=== PATIENT | female | born 1995 | race Caucasian/White ===

== ENCOUNTER 2016-05-20 16:50 | Emergency (ER) | payer MEDICAID ==
[~2016-05-20] VITALS: Ht 167.6 cm; Wt 181.0 kg
[~2016-05-20 16:50] MED LIST: CELE20TA PO; CETI5TAB2 PO; FLUT1SPR5 EACH NARE; LISD40 PO; MAGICADU2 SWISH-SWAL; TOPA100T11 PO; TRAZ50TA12 PO
[2016-05-20 17:02] VITALS: BP 183/116; PULSE 117; RESP 16; TEMP 98.6; O2SAT 99
[2016-05-20] MEDS ORDERED: LIDOCAINE HCL 1% 50 ML VIAL INFIL ONE (17:15)
[2016-05-20] MEDS ORDERED: AMOX875T PO (17:18)
[2016-05-20] MEDS ORDERED: CIPR0.3S LEFT EAR (17:18)
--- NOTE | 2016-05-20 17:19 | PD ---
HPI Chief Complaint: ENT Complaint Time Seen by Provider: 17:14 Travel History International Travel<30 days: No Contact w/Intl Traveler<30days: No Traveled to known affect area: No History of Present Illness HPI 20-year-old female presents to the emergency department for evaluation of left ear pain for 3 days. She states that she thought she had a cerumen impaction so she used peroxide. However, the pain is worsening. She does report associated hearing loss. Patient reports history of anxiety and insomnia. Patient does state she had a history of high blood pressure, states her physician took her blood pressure medications stating it was due to her anxiety. She denies any chance of . She denies any other complaints at this time. PFSH Past Medical History ADHD: Yes Asthma: Yes Bipolar Disorder: Yes Weight (Kg): 3 Anxiety: Yes Depression: Yes Cancer: No Cardiovascular Problems: Yes (HTN) Diabetes: No Diminished Hearing: No Endocrine: Yes GERD: Yes Headaches: Yes Hepatitis: No Hiatal Hernia: Yes Hypertension: Yes Immune Disorder: No Psychiatric: Yes (ODD) Respiratory: Yes (ASTHMA) Immunizations Current: Yes Migraines: No Sleep Apnea: Yes Thyroid Disease: No Tetanus Vaccination: > 5 Years Influenza Vaccination: No PNEUMOCCOCAL Vaccine (Year): 2 ?: Not LMP: 05-02-16 : 0 Para: 0 Miscarriage: 0 : 0 Past Surgical History Joint Replacement: No Pacemaker: No Other Surgery: Yes (SPINAL TAP) Social History Alcohol Use: No Tobacco Use: No Substance Use: No Allergies-Medications (Allergen,Severity, Reaction): Coded Allergies: Advair (Verified Allergy, Severe, PANIC ATTACK, 05/20/16) Grass (Verified Allergy, Severe, SNEEZING, 05/20/16) [place] Tree (Verified Allergy, Severe, SNEEZING, 05/20/16) Shrimp (Verified Allergy, Severe, UNKNOWN TOLD BY PRINCIPAL JAVA DEVELOPER, 05/20/16) Wheat (Verified Allergy, Severe, GI UPSET, 05/20/16) [place] (Verified Adverse Reaction, Mild, GI UPSET, 05/20/16) Reported Meds & Prescriptions Reported Meds & Active Scripts Active Amoxicillin 875 Mg Tab 875 Mg PO BID 10 Days Ciprodex Otic Drops (Ciprofloxacin-Dexamethasone Otic Drops) 0.3-0.1% Susp 4 Drop LEFT EAR BID Trazodone (Trazodone HCl) 50 Mg Tab 50 Mg PO 1 1/2 HS Topamax (Topiramate) 100 Mg Tab 100 Mg PO BID Celexa (Citalopram Hydrobromide) 20 Mg Tab 20 Mg PO 1 1/2DAILY Review of Systems Except as stated in HPI: all other systems reviewed are Neg Physical Exam Narrative GENERAL: Well-developed well-nourished obese female patient, ambulatory. Afebrile. SKIN: Warm and dry. HEAD: Normocephalic. Atraumatic. ENT: Mucosa pink and moist. No erythema or exudates. No uvular edema. No uvular , palatal, or tonsillar deviation. Airway patent. Nasal turbinates appear normal without nasal blood, purulent drainage or septal hematoma. Right tympanic membranes is clear without erythema or perforation. Left ear canal slightly swollen and tender. Cerumen noted and was attempted to be removed with a curet, but the patient could not tolerate. I am unable to visualize the tympanic membrane in the left ear. EYES: No scleral icterus. No injection or drainage. NECK: Supple, trachea midline. No JVD or lymphadenopathy. CARDIOVASCULAR: Regular rate and rhythm without murmurs, gallops, or rubs. RESPIRATORY: Breath sounds equal bilaterally. No accessory muscle use. Lungs sounds are clear to auscultation. GASTROINTESTINAL: Abdomen soft, non-tender, nondistended. MUSCULOSKELETAL: No cyanosis, or edema. Data Data Last Documented VS Vital Signs Date Time Temp Pulse Resp B/P Pulse Ox O2 Delivery O2 Flow Rate FiO2 05/20/16 17:24 98 193/107 05/20/16 17:02 98.6 16 99 Orders Lidocaine 1% Inj (50 Ml) (Xylocaine 1% I (05/20/16 17:15) [facility] Medical Decision Making Medical Screen Exam Complete: Yes Emergency Medical Condition: Yes Medical Record Reviewed: Yes Differential Diagnosis Otitis media versus otitis externa versus cerumen impaction Narrative Course 20-year-old female presents to the emergency department for evaluation of left ear pain for 3 days. Physical exam is consistent otitis externa. I am unable to visualize the tympanic membrane. Earwick is placed. Patient will be discharged prescription for Ciprodex and amoxicillin. She is encouraged to follow-up with her primary care physician regarding elevated blood pressure. Diagnosis Primary Impression: Otitis externa Qualified Code: H60.502 - Acute otitis externa of left ear, unspecified type Additional Impression: Hypertension Qualified Code: I10 - Essential hypertension Referrals: Primary Care Physician call for appointment Patient Instructions: General Instructions, Otitis Externa (ED) Additional Instructions: Use eardrops as directed. Remove earwick in 2 days has not fallen out. Take antibiotic as directed until gone. Follow-up with your primary care physician. Keep log of your blood pressure and follow up with your primary care physician. Return to the emergency department for any acute worsening of symptoms. Med/Other Pt SpecificInfo: Prescription(s) given Scripts Amoxicillin 875 Mg Xof357 Mg PO BID 10 Days Ref 0 Prov:Yoana Nagy 05/20/16 Ciprofloxacin-Dexamethasone Otic Drops (Ciprodex Otic Drops)0.3-0.1% Susp4 Drop LEFT EAR BID #1 BOTTLE Ref 0 Prov:Yoana Nagy 05/20/16 Disposition: 01 DISCHARGE HOME Condition: Stable Yoana Nagy May 20, 2016 17:19
[2016-05-20 17:24] VITALS: BP 193/107; PULSE 98
[2016-05-21] MEDS ORDERED: ZALE5CAP PO (08:27)
[2016-06-18] MEDS ORDERED: ZALE5CAP PO (16:29)
[2016-06-18] MEDS ORDERED: CETI10 PO (16:40)
[2016-06-18] MEDS ORDERED: FLUT1SPR5 EACH NARE (16:40)
[2016-06-18] MEDS ORDERED: KETOC2%T TOPICAL (16:40)
[2016-07-16] MEDS ORDERED: CELE20TA PO (15:35)
[2016-07-16] MEDS ORDERED: TOPA100T11 PO (15:35)
[2016-07-20] MEDS ORDERED: CITA40TA4 PO (14:55)
[2016-08-03] MEDS ORDERED: CETI10 PO (21:10)
[2016-08-03] MEDS ORDERED: FLUT1SPR5 EACH NARE (21:10)
[2016-09-22] MEDS ORDERED: CLOB-23 TOPICAL (16:23)
[2016-09-22] MEDS ORDERED: KETOC2%T TOPICAL (16:23)
== END 2016-05-20 17:43 | disposition home or self-care (01) ==
LOC: PHEFT 16:50
DX: H60.502 Unspecified acute noninfective otitis externa, left ear (principal); I10 Essential (primary) hypertension; J45.909 Unspecified asthma, uncomplicated
CPT/HCPCS: 99282

== ENCOUNTER 2016-07-19 02:38 | Emergency (ER) | payer MEDICAID ==
[~2016-07-19] VITALS: Ht 167.6 cm; Wt 182.6 kg
[~2016-07-19 02:38] MED LIST changes: +CETI10 PO; -CETI5TAB2 PO; +KETOC2%T TOPICAL; -LISD40 PO; -MAGICADU2 SWISH-SWAL; -TRAZ50TA12 PO; +ZALE5CAP PO
[2016-07-19 03:00] VITALS: BP 186/90; PULSE 115; RESP 18; TEMP 98.5; O2SAT 98
[2016-07-19] MEDS ORDERED: CITA40TA4 PO (03:28)
[2016-07-19 03:30] VITALS: BP 173/97; PULSE 93; RESP 18; O2SAT 98
[2016-07-19] MEDS ORDERED: VIST25CA PO (03:33)
[2016-07-19] MEDS ORDERED: LORazepam 2 MG/ML VIAL IV PUSH ONE (03:45)
--- NOTE | 2016-07-19 03:46 | PD ---
HPI Chief Complaint: Anxiety Time Seen by Provider: 03:39 Travel History International Travel<30 days: No Contact w/Intl Traveler<30days: No Traveled to known affect area: No History of Present Illness HPI The patient is a 20-year-old female with a history of anxiety disorder and panic attacks who complains of a feeling of tightness in her throat since 10 PM yesterday. She denies any fever or trauma. PFSH Past Medical History ADHD: Yes Asthma: Yes Bipolar Disorder: Yes Weight (Kg): 3 Anxiety: Yes Depression: Yes Cancer: No Cardiovascular Problems: Yes (HTN) Diabetes: No Diminished Hearing: No Endocrine: Yes GERD: Yes Headaches: Yes Hepatitis: No Hypertension: Yes Immune Disorder: No Kidney Stones: Yes Psychiatric: Yes (ODD) Respiratory: Yes (ASTHMA) Immunizations Current: Yes Migraines: No Sleep Apnea: Yes Thyroid Disease: No Tetanus Vaccination: > 5 Years Influenza Vaccination: No PNEUMOCCOCAL Vaccine (Year): 2 ?: Unknown LMP: Three weeks ago : 0 Para: 0 Miscarriage: 0 : 0 Past Surgical History Joint Replacement: No Pacemaker: No Other Surgery: Yes (SPINAL TAP) Social History Alcohol Use: No Tobacco Use: No Substance Use: No Allergies-Medications (Allergen,Severity, Reaction): Coded Allergies: Advair (Verified Allergy, Severe, PANIC ATTACK, 07/19/16) Grass (Verified Allergy, Severe, SNEEZING, 07/19/16) [place] Tree (Verified Allergy, Severe, SNEEZING, 07/19/16) Shrimp (Verified Allergy, Severe, UNKNOWN TOLD BY BOOKKEEPERS SUPERVISOR, 07/19/16) Wheat (Verified Allergy, Severe, GI UPSET, 07/19/16) Pecan (Verified Allergy, Unknown, unknown, 07/19/16) [place] (Verified Adverse Reaction, Mild, GI UPSET, 07/19/16) Reported Meds & Prescriptions Reported Meds & Active Scripts Active Topamax (Topiramate) 100 Mg Tab 100 Mg PO 1 1/2BID Flonase Nasal [place] (Fluticasone Nasal [place]) 50 Mcg/Act [place] 100 Mcg EACH NARE BID Cetirizine (Cetirizine HCl) 10 Mg Tab 10 Mg PO DAILY Nizoral Topical Shampoo (Ketoconazole) 2% Sham 1 Applic TOPICAL Q72H Apply to scalp Zaleplon 5 Mg Cap 5 Mg PO HS PRN Reported Vistaril (Hydroxyzine Pamoate) 25 Mg Cap 25 Mg PO DAILY PRN Citalopram (Citalopram Hydrobromide) 40 Mg Tab 40 Mg PO DAILY Review of Systems Except as stated in HPI: all other systems reviewed are Neg Physical Exam Narrative GENERAL: Well-nourished, well-developed patient who appears slightly anxious and no respirator distress. Her vital signs show blood pressure 173/97 with heart rate of 93 and oximetry 98%. SKIN: Focused skin assessment warm/dry. HEAD: Normocephalic. EYES: No scleral icterus. No injection or drainage. NECK: Supple, trachea midline. No JVD or lymphadenopathy. There is no meningismus and there is no airway obstruction. There is no stridor. CARDIOVASCULAR: Regular rate and rhythm without murmurs, gallops, or rubs. RESPIRATORY: Breath sounds equal bilaterally. No accessory muscle use. GASTROINTESTINAL: Abdomen soft, non-tender, nondistended. MUSCULOSKELETAL: No cyanosis, or edema. BACK: Nontender without obvious deformity. No CVA tenderness. Data Data Last Documented VS Vital Signs Date Time Temp Pulse Resp B/P Pulse Ox O2 Delivery O2 Flow Rate FiO2 07/19/16 03:30 93 18 173/97 98 Room Air 07/19/16 03:00 98.5 Orders Lorazepam Inj (Ativan Inj) (07/19/16 03:45) MDM Medical Decision Making Medical Screen Exam Complete: Yes Emergency Medical Condition: Yes Medical Record Reviewed: Yes Differential Diagnosis Panic attack, conversion reaction, airway obstructionhighly unlikely, allergic reactionunlikely Narrative Course It is now 035 5 in the morning and the patient feels better and will be discharged. Diagnosis Primary Impression: Panic attack Additional Instructions: Follow-up with your primary care physician and take her medicines as prescribed. There is no evidence that the medicines you are taking caused this , it does not appear as an allergic reaction. Med/Other Pt SpecificInfo: No Change to Meds Disposition: 01 DISCHARGE HOME Condition: Stable Michael Schmitt MD Jul 19, 2016 03:46
[2016-07-19 04:10] VITALS: BP 167/89; PULSE 85; RESP 18; TEMP 97.9; O2SAT 98
[2016-07-19 04:34] VITALS: BP 164/100
[2016-07-20] MEDS ORDERED: CITA40TA4 PO (14:55)
[2016-08-03] MEDS ORDERED: CETI10 PO (21:10)
[2016-08-03] MEDS ORDERED: FLUT1SPR5 EACH NARE (21:10)
[2016-09-22] MEDS ORDERED: CLOB-23 TOPICAL (16:23)
[2016-09-22] MEDS ORDERED: KETOC2%T TOPICAL (16:23)
== END 2016-07-19 04:39 | disposition home or self-care (01) ==
LOC: PHED 02:38
DX: F41.0 Panic disorder [episodic paroxysmal anxiety] (principal); J45.909 Unspecified asthma, uncomplicated; I10 Essential (primary) hypertension; G47.30 Sleep apnea, unspecified; K21.9 Gastro-esophageal reflux disease without esophagitis
CPT/HCPCS: 96374; 99283; J2060

== ENCOUNTER 2016-12-19 17:11 | Emergency (ER) | payer MEDICAID ==
[~2016-12-19] VITALS: Ht 167.6 cm; Wt 184.4 kg
[~2016-12-19 17:11] MED LIST changes: -CELE20TA PO; +CITA40TA4 PO; +CLOB-23 TOPICAL; +VIST25CA PO
[2016-12-19 17:29] VITALS: BP 145/101; PULSE 88; RESP 18; TEMP 98.4; O2SAT 100
--- NOTE | 2016-12-19 17:51 | PD ---
HPI Chief Complaint: Oral / Dental Pain or Problem Time Seen by Provider: 17:40 Travel History International Travel<30 days: No Contact w/Intl Traveler<30days: No Traveled to known affect area: No History of Present Illness HPI 21-year-old female presents to the emergency room for evaluation of painful, white lesions to her tongue and mouth for the past week. Patient states it is progressively getting worse. States pain is so severe she is having difficulty eating and drinking, even water. At onset of symptoms she had other upper respiratory symptoms but those have improved. She has been taking Tylenol [id number] for pain. Denies fever, chills, nausea, vomiting. She has psychiatric conditions and hypertension that are untreated because of insurance reasons. Denies history of HIV or AIDS or risky behaviors. She has not been using her inhaler. PFSH Past Medical History ADHD: Yes Asthma: Yes Bipolar Disorder: Yes Weight (Kg): 3 Anxiety: Yes Depression: Yes Cancer: No Cardiovascular Problems: Yes (HTN) Diabetes: No Diminished Hearing: No Endocrine: Yes GERD: Yes Headaches: Yes Hepatitis: No Hiatal Hernia: Yes Hypertension: Yes Immune Disorder: No Kidney Stones: Yes Psychiatric: Yes (ODD) Respiratory: Yes (ASTHMA) Immunizations Current: Yes Migraines: No Sleep Apnea: Yes Thyroid Disease: No PNEUMOCCOCAL Vaccine (Year): 2 ?: Not LMP: NOW : 0 Para: 0 Miscarriage: 0 : 0 Past Surgical History Surgical History: No Previous Surgery Joint Replacement: No Pacemaker: No Other Surgery: Yes (SPINAL TAP) Social History Alcohol Use: No Tobacco Use: No Substance Use: No Allergies-Medications (Allergen,Severity, Reaction): Coded Allergies: fluticasone (Unverified Allergy, Severe, PANIC ATTACK, 12/19/16) fluticasone furoate (Unverified Allergy, Severe, PANIC ATTACK, 12/19/16) grass pollen (Unverified Allergy, Severe, SNEEZING, 12/19/16) salmeterol (Unverified Allergy, Severe, PANIC ATTACK, 12/19/16) shrimp (Unverified Allergy, Severe, UNKNOWN TOLD BY APPLICATION MANAGER, 12/19/16) tree and shrub pollen (Unverified Allergy, Severe, SNEEZING, 12/19/16) wheat (Unverified Allergy, Severe, GI UPSET, 12/19/16) pecan nut (Unverified Allergy, Unknown, unknown, 12/19/16) corn (Unverified Adverse Reaction, Mild, GI UPSET, 12/19/16) Reported Meds & Prescriptions Reported Meds & Active Scripts Active Nystatin Liq 100,000 unit/ml Susp 5 Ml SWISH-SWAL QID 14 Days Cormax Scalp Topical (Clobetasol Propionate) 0.05% Soln 1 Applic TOPICAL BID Nizoral Topical Shampoo (Ketoconazole) 2% Sham 1 Applic TOPICAL 2XWEEK Apply to scalp Flonase Nasal [place] (Fluticasone Nasal [place]) 50 Mcg/Act [place] 100 Mcg EACH NARE BID Cetirizine (Cetirizine HCl) 10 Mg Tab 10 Mg PO DAILY Citalopram (Citalopram Hydrobromide) 40 Mg Tab 40 Mg PO DAILY Topamax (Topiramate) 100 Mg Tab 100 Mg PO 1 1/2BID Nizoral Topical Shampoo (Ketoconazole) 2% Sham 1 Applic TOPICAL Q72H Apply to scalp Zaleplon 5 Mg Cap 5 Mg PO HS PRN Reported Vistaril (Hydroxyzine Pamoate) 25 Mg Cap 25 Mg PO DAILY PRN Review of Systems Except as stated in HPI: all other systems reviewed are Neg Physical Exam Narrative GENERAL: Well-nourished, morbidly obese female in no acute distress. Afebrile. Ambulatory. SKIN: Focused skin assessment warm/dry. HEAD: Normocephalic. EYES: No scleral icterus. No injection or drainage. NECK: Supple, trachea midline. No JVD or lymphadenopathy. ENT: Mucosa moist. There are several white plaques on the tongue. Some erythematous lesions on the wet mucosa. No erythema or exudates. No uvular edema. No uvular, palatal, or tonsillar deviation. Airway patent. Nasal turbinates appear normal without nasal blood, purulent drainage or septal hematoma. EARS: Bilateral pinnae and external canals appear within normal limits. Bilateral tympanic membranes without erythema, dullness or perforation. CARDIOVASCULAR: Regular rate and rhythm without murmurs, gallops, or rubs. RESPIRATORY: Breath sounds equal bilaterally. No accessory muscle use. No crackles, rales, wheezes, or rhonchi. Data Data Last Documented VS Vital Signs Date Time Temp Pulse Resp B/P (MAP) Pulse Ox O2 Delivery O2 Flow Rate FiO2 12/19/16 17:29 98.4 88 18 145/101 (116) 100 Orders Orders Blood Glucose (12/19/16 18:03) Nystatin Liq (Mycostatin Liq) (12/19/16 18:15) MDM Medical Decision Making Medical Screen Exam Complete: Yes Emergency Medical Condition: Yes Medical Record Reviewed: Yes Differential Diagnosis Geographic tongue, oral candidiasis, leukoplakia Narrative Course 21-year-old morbidly obese female presents to the emergency room for evaluation of painful, or lesions to her mouth for the past week. Patient had associated upper respiratory symptoms onset but this has subsided. States it is painful even to swallow water. Patient denies history of HIV, AIDS, diabetes, recent inhaler use, recent antibiotic use, or dentures. Physical exam reveals white plaques throughout lung with erythematous lesions on wet mucosa. The lesions could be scraped off. Blood glucose was 97. This is oral candidiasis. She was given first dose of nystatin in the emergency room and discharged with prescription for the same. Patient was told to follow-up with the health department for HIV testing. Told to return for worsening symptoms. She understands and agrees to plan. Diagnosis Primary Impression: Oral candidiasis Referrals: Primary Care Physician Additional Instructions: Swish in the mouth and retain for as long as possible (several minutes) before swallowing. Take ibuprofen with food as directed, as needed for pain. Follow-up with a primary care physician. Follow-up with department for HIV testing. Return to the emergency room for worsening symptoms. Med/Other Pt SpecificInfo: Prescription(s) given Scripts Nystatin Liq (Nystatin Liq) 100,000 unit/ml Susp 5 ML SWISH-SWAL QID for Infection for 14 Days, ML 0 Refills Prov: Jethro Muhammad MD 12/19/16 Disposition: 01 DISCHARGE HOME Condition: Stable Tanja Pantoja Dec 19, 2016 17:51
[2016-12-19] MEDS ORDERED: NYST1000 SWISH-SWAL (18:05)
[2016-12-19] MEDS ORDERED: NYSTATIN SUSP 500,000 U/5 ML CUP SWISH-SWAL ONE (18:15)
== END 2016-12-19 18:32 | disposition home or self-care (01) ==
LOC: PHEFT 17:11
DX: B37.0 Candidal stomatitis (principal)
CPT/HCPCS: 99283